=== PATIENT | female | born 1945 | race Caucasian/White ===

== ENCOUNTER → 2016-08-24 | Outpatient (CLI) | payer MEDICARE, OTHER ==
[~2016-08-24] VITALS: Ht 167.6 cm; Wt 101.6 kg
[~2016-08-24] MED LIST: ASPI325T8 PO; CEFE1VIA5 IJ; ESCITALOPRAM OX10 MG PO; FLUC200T4 PO; INSU100I11 SQ; IPRA0.2S5 NEB; METO25TA4 PO; PANT40TA5 PO; SODI650T PO
--- NOTE | 2016-08-24 11:56 | PDOC ---
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 No apparent complication. Disposition Disposition May return by ambulance to [facility] post 1 hr recovery in [facility], if no bleeding or other problems. F/u with referring [facility] . JOSE THOMAS MD Aug 24, 2016 11:56
[2016-08-24 12:20] VITALS: BP 136/71
== END | disposition home or self-care (01) ==
LOC: INTRAD 10:39
PROVIDERS: ATTEND Internal Medicine Nephrology
DX: Z49.01 Encounter for fitting and adjustment of extracorporeal dialysis catheter (principal); I13.0 Hypertensive heart and chronic kidney disease with heart failure and stage 1 through stage 4 chronic kidney disease, or unspecified chronic kidney disease; E11.22 Type 2 diabetes mellitus with diabetic chronic kidney disease; N18.9 Chronic kidney disease, unspecified; I50.9 Heart failure, unspecified; I48.91 Unspecified atrial fibrillation; E78.00 Pure hypercholesterolemia, unspecified; K21.9 Gastro-esophageal reflux disease without esophagitis; D64.9 Anemia, unspecified; Z86.39 Personal history of other endocrine, nutritional and metabolic disease; Z90.710 Acquired absence of both cervix and uterus
CPT/HCPCS: 36589